=== PATIENT | male | born 1990 | race Caucasian/White ===

== ENCOUNTER 2022-09-28 14:21 | Emergency (ER) | payer OTHER, SELFPAY ==
--- NOTE | ~2022-09-28 | XR_ITS ---
EXAMINATION: XR tibia fibula RT 2V DATE: 09/28/2022 15:12 INDICATION: Pain at the lateral left lower leg after stepping off a curb 3 days prior TECHNIQUE: AP and lateral views of the right lower leg were obtained on overlapping proximal and dist al radiographs. COMPARISON: None. FINDINGS: Bone alignment is normal. No fracture. Joint spaces are normal. No right knee or ankle joint effusion . Diffuse soft tissue swelling with subcutaneous edema throughout the right lower leg from the knee t hrough the ankle most prominent at the anterolateral mid lower leg. IMPRESSION: 1. No osseous abnormality. Reviewed, dictated and finalized at location A. IMPRESSION: 1. No osseous abnormality.
[2022-09-28 14:36] VITALS: BP 208/139; PULSE 100; RESP 20; TEMP 37.3; O2SAT 96
--- NOTE | 2022-09-28 14:47 | ED.LOWEXIN ---
HPI - Extremity Injury (Lower) General Chief Complaint: Extremity Injury, Lower Stated Complaint: WCleft ankle injury Source: patient and RN notes reviewed History of Present Illness HPI Narrative: 32 year old male presents to urgent care with complaints of right tib-fib pain. Patient states he was carrying a hay barrel and tripped over a curb. Pt states his right matos hit the curb perpendicularly. Pt presents with some redness to his maots with 2 superficial puncture wounds. Pt presents with bruising and swelling to right ankle. Pt reports numbness and tingling when he walks on it. Pt noted to have HTN in clinic and admits to not taking daily meds. Pt admits to having high anxiety and not seeing a MD for approximately 10 years. Pt states he manages his diabetes insipidus on his own. Denies any chest pain, SOB, HUITRON, or dizziness. Pt also admits to taking 2,000 mg of ibuprofen almost daily for his chronic knee pain. Related Data Allergies Allergy/AdvReac Type Severity Reaction Status Date / Time Penicillins Allergy Unknown Verified 09/28/22 14:45 Review of Systems Review of Systems: Pertinent positives and pertinent negatives per HPI. PMFSH Comments At the time of my signature, I reviewed and agree with the nursing past medical, surgical, social, and family history. There is no relevant family history pertinent to the patient complaint. Exam Narrative: GENERAL: This is a well-nourished, well-developed patient, in no apparent distress. HEAD: normocephalic, atraumatic. EYES: Sclera clear/white. Vision is grossly intact. EARS: External ears normal, auditory canals clear and without drainage. Hearing grossly intact. NOSE: External nose normal with no obvious nasal discharge, nares without redness, no rhinorrhea. CARDIOVASCULAR: Regular rate and rhythm without murmurs, gallops, or rubs. RESPIRATORY: Clear to auscultation. Breath sounds equal bilaterally. No wheezes, rales, or rhonchi. SKIN: warm, intact with no suspicious lesions or rash, good texture and turgor. NEURO: awake, alert, and oriented to person, place and time. There were no obvious focal neurologic abnormalities. EXTREMITIES: Edematous and bruised right ankle. Tender right mid matos with some erythema noted. Course Course Level of Care: Express Care Visit Vital Signs Vital signs: Vital Signs Temperature 99.1 F 09/28/22 14:36 Pulse Rate 100 09/28/22 14:36 Respiratory Rate 20 09/28/22 14:36 Blood Pressure 208/139 H 09/28/22 14:36 Pulse Oximetry 96 09/28/22 14:36 Oxygen Delivery Room Air 09/28/22 14:36 Temperature 99.1 F 09/28/22 14:36 Pulse Rate 100 09/28/22 14:36 Respiratory Rate 20 09/28/22 14:36 Blood Pressure 208/139 H 09/28/22 14:36 Pulse Oximetry 96 09/28/22 14:36 Oxygen Delivery Room Air 09/28/22 14:36 Reviewed MDM - Extremity Injury (Lower) MDM Narrative Medical decision making narrative: Use the RICE method at home. May take ibuprofen and/or Tylenol if needed. If symptoms persist in 1 week after conservative treatment, follow-up with specialist. Patient is informed that they may have pre-hypertension or hypertension based on a blood pressure reading in the department. I recommend the patient call the primary care provider listed on their discharge instructions or a physician of their choice this week to arrange follow-up for further evaluation of possible pre-hypertension or hypertension. Take the antibiotic as directed. Monitor for any signs of a worsening infection in her leg and go to the if he noticed any. Go to ER with any chest pain, shortness of breath, increased pain, headache, or dizziness. Follow-up with a primary care physician regarding your high blood pressure. Extensive education given to pt regarding his chronic, uncontrolled, HTN. Pt was advised he needs to see a PCP which pt refuses to do. Pt advised to go to the ED with any new or worsening symptoms with his leg, chest pain, SO
[2022-09-28] MEDS: ACETAMINOPHEN 500 MG TABLET 1000 MG PO (15:15)
[2022-09-28 16:00] VITALS: BP 194/128
== END 2022-09-28 16:00 | disposition home or self-care (01) ==
PROVIDERS: Emergency Provider Nurse Practitioner Family
DX: I10 Essential (primary) hypertension (principal); S90.01XA Contusion of right ankle, initial encounter; W18.09XA Striking against other object with subsequent fall, initial encounter; L03.115 Cellulitis of right lower limb
CPT/HCPCS: 73590; 99213; A9270; G0463

== ENCOUNTER 2022-10-07 14:43 | Emergency (ER) | payer OTHER, SELFPAY ==
[2022-10-07 14:54] VITALS: BP 203/122; PULSE 97; RESP 18; TEMP 36.4; O2SAT 95
[2022-10-07 15:20] VITALS: BP 200/128
--- NOTE | 2022-10-07 15:21 | ED.LOWEXIN ---
HPI - Extremity Injury (Lower) General Chief Complaint: Extremity Injury, Lower Stated Complaint: SKin Sore/Right Leg Time Seen by Provider: 10/07/22 15:36 Source: patient Mode of arrival: ambulatory Limitations: no limitations History of Present Illness HPI Narrative: 32y/o male presented for complaint of redness and swelling to the right lower extremity. Patient was treated for cellulitis to the site on 09/28/2022, after reporting injury from tripping over a curb striking the matos. He completed a course of Keflex as prescribed. He states the leg has continued to swell and now has more redness and swelling to the foot. denies numbness, tingling, weakness of the extremity. Elevated BP on arrival, states he is aware of high BP but does not have PCP for 10 years and does not take medication for blood pressure. Denies chest pain, shortness of breath, headache, dizziness or vision changes. Hx diabetes insipidus. Related Data Home Medications Medication Instructions Recorded Confirmed No Home Medications 10/07/22 10/07/22 Allergies Allergy/AdvReac Type Severity Reaction Status Date / Time Penicillins Allergy Unknown Verified 10/07/22 15:05 Review of Systems Review of Systems: CONSTITUTIONAL: Denies body aches, fever, chills EYES: Denies visual changes ENT: Denies rhinorrhea, congestion CARDIOVASCULAR: Denies chest pain, palpitations, or edema. RESPIRATORY: Denies cough or dyspnea. GASTROINTESTINAL: Denies abdominal pain, nausea, vomiting, or diarrhea. SKIN: per HPI MUSCULOSKELETAL: Denies back pain, joint pain, or myalgia. NEUROLOGIC: Denies headache, numbness, tingling, or weakness. All systems reviewed & are unremarkable except as noted in HPI and below [facility] Past Medical History Medical History (Updated 10/07/22 @ 20:56 by Mitali Mason APRN) Diabetes insipidus Comments At time of signature, I have reviewed and agree with nursing past medical, surgical, social and family history unless otherwise noted. Please see nursing chart for further information. There is no relevant family history pertinent to the presenting complaint Exam Narrative: GENERAL: Well-appearing EYES: PERRLA, conjunctivae clear NECK: Supple. CHEST: Speaks in full sentences. Lungs clear. No respiratory distress. HEART: Regular rate and rhythm. Normal and equal peripheral pulses. EXTREMITIES: RLE anterior matos erythematous, tight c/w cellulitis approx 10cm, not circumferential; purple bruising to lateral and posterior lower leg; lower leg and foot with 3+ pitting edema. Foot has normal strength and sensation, normal range of motion. No open wounds or obvious deformity; pulse palpable and equal bilaterally, skin warm, dry, pink. Capillary refill less than 3 seconds. SKIN: Warm, dry, no rash. NEURO: Alert and oriented x3. PSYCH: Normal mood and affect Course Course Emergency Course: Patient is aware of diagnosis, understands and agrees to treatment plan. Anticipatory guidance given. Patient agrees to follow-up as directed and is aware of reasons to seek care at the emergency department. Portions of this record may have been created with voice recognition software Level of Care: Express Care Visit Vital Signs Vital signs: Vital Signs Temperature 97.5 F L 10/07/22 14:54 Pulse Rate 97 10/07/22 14:54 Respiratory Rate 18 10/07/22 14:54 Blood Pressure 203/122 H 10/07/22 14:54 Pulse Oximetry 95 10/07/22 14:54 Oxygen Delivery Room Air 10/07/22 14:54 Temperature 97.5 F L 10/07/22 14:54 Pulse Rate 97 10/07/22 14:54 Respiratory Rate 18 10/07/22 14:54 Blood Pressure 200/128 H 10/07/22 15:20 Pulse Oximetry 95 10/07/22 14:54 Oxygen Delivery Room Air 10/07/22 14:54 Reviewed MDM - Extremity Injury (Lower) MDM Narrative Medical decision making narrative: Previous note from 09/28/2022 reviewed, noted RLE Edematous and bruised right ankle, tender right mid matos with some er
--- NOTE | 2022-10-07 15:30 | PC.NURSE ---
REPORT GIVEN TO BHARGAV JIMENEZ RN
== END 2022-10-07 15:47 | disposition left against medical advice (07) ==
PROVIDERS: Emergency Provider Nurse Practitioner Family
DX: M79.661 Pain in right lower leg (principal); M79.89 Other specified soft tissue disorders; E23.2 Diabetes insipidus
CPT/HCPCS: 99212; G0463